=== PATIENT | female | born 1975 | race Caucasian/White ===

== ENCOUNTER 2021-10-23 11:01 | Outpatient (CLI) | payer OTHER, SELFPAY ==
[2021-10-23 11:31] LABS: Erythrocyte Sedimentation Rate 2 mm/hr (0-30)
[2021-10-23 12:05] LABS: Vitamin D,25 Hydroxy 25.9 ng/mL
== END 2021-10-23 23:59 | disposition home or self-care (01) ==
LOC: LAB 11:07
PROVIDERS: PCP Nurse Practitioner Family; Referring Provider Physician Assistant Medical; Visit Provider Physician Assistant Medical
DX: R53.83 Other fatigue (principal); R55 Syncope and collapse; R00.0 Tachycardia, unspecified; E55.9 Vitamin D deficiency, unspecified
CPT/HCPCS: 36415; 82306; 85652